=== PATIENT | female | born 1980 | race Caucasian/White ===

== ENCOUNTER 2022-05-03 13:30 | Outpatient (CLI) | payer MEDICAID, SELFPAY ==
--- NOTE | 2022-05-03 06:00 | DI.RAD_ITS ---
Exam(s) XR PAIN CLINIC LUMBAR SP 2V EXAM: XR PAIN CLINIC LUMBAR SP 2V CLINICAL HISTORY: Dx: Lumbar Spondylosis TECHNIQUE: 2D and realtime digital imaging was performed. CONTRAST MATERIAL: Refer to procedure report. COMPARISON: No exams were available for comparison FINDINGS: Fluoroscopy was provided for Dr. Cruz during the performance of a lumbar medial branch block. Christie gonzalez refer to the procedure report for complete details. Ka,r=55.9 mGy IMPRESSION:
[2022-05-03 13:41] VITALS: BP 128/82; PULSE 67; RESP 22; TEMP 36.9; O2SAT 97
--- NOTE | 2022-05-03 14:13 | PDOC.PAIN_ITS ---
Pain Clinic Procedure Note Procedure Note Procedure Note: Lumbar/Sacral Medial Branch Blocks Erinn Irizarry has been referred to the [facility] for lumbar/sacral medial branch blocks. COMMENTS: She was evaluated in our clinic on 02/02/22. Pre-procedure pain VAS = 8/10. Dx: Lumbosacral spondylosis without myelopathy Patient was interviewed and the medical record reviewed. There were no medical, pharmacologic, radiographic or other structural contraindications to attempting fluoroscopically guided local anesthetic lumbar/sacral medial branch blocks. Risks and expected side effects as well as potential benefit of the procedure were reviewed and voiced concerns addressed. The printed consent form was signed and witnessed. Standard time-out procedure was performed. Patient was placed in the prone position on the fluoroscopy table and automated blood pressure cuff and pulse oximeter applied. The skin entry points for approaching the anatomic target points of the segmental medial branches of bilateral L3, L4, and L5DR were identified with anfluoroscopy and marked. Following thorough Chlorhexadine preparation of the skin and draping, I marked out the positions of the medial branches. I then inserted 6 spinal needles (5 X 22G) to the target areas. Position was confirmed in A/P, oblique and lateral views with 0.25ml of omnipaque 240. At this point I injected 0.5ml 0.5% Bupivacaine at each segmental sensory nerve. Vital signs were stable throughout the procedure and were as recorded in the docflowsheet by the nursing staff. Follow up plans and appointments were discussed and was instructed to keep careful note of how the usual pain was modified by these injections. Specifically was asked to keep a pain diary for the next 24 hours using a numeric pain scale of 0-10 and report these results at the follow-up visit. Post procedure instruction was given as documented in the nursing documentation and having met discharge criteria. Patient was discharged from the Pain Management Center. Based on the medial branches blocked today, if the patient has adequate relief and we are able to proceed to radiofrequency ablation, the treatment should result in the denervation of the bilateral L4-L5 and L5-S1 FACET JOINTS. We would expect to denervate a total of 4 facets during the radiofrequency ablation. COMMENTS: Post-procedure pain VAS = 0/10. Vidal Cruz DO, MPH [facility]-Pain Management [facility] for Pain Management CC: Nabor Lynne
[2022-05-03] MEDS: Omnipaque 240 MG/ML 50 ML BTL IJ (14:23)
[2022-05-03] MEDS: Bupivacaine 0.5% Pres-Free 30 ML VIAL IJ (14:24)
[2022-05-03 14:25] VITALS: BP 142/89; PULSE 76; RESP 19; O2SAT 100
== END 2022-05-03 13:31 | disposition home or self-care (01) ==
PROVIDERS: PCP Family Medicine; Visit Provider Preventive Medicine Occupational Medicine
DX: M47.817 Spondylosis without myelopathy or radiculopathy, lumbosacral region (principal)
CPT/HCPCS: 64493; 64494; 72100; Q9967

== ENCOUNTER 2022-10-31 12:33 | Outpatient (CLI) | payer MEDICAID, SELFPAY ==
--- NOTE | 2022-10-31 06:00 | DI.RAD_ITS ---
Exam(s) XR PAIN CLINIC LUMBAR SP 2V EXAM: XR PAIN CLINIC LUMBAR SP 2V CLINICAL HISTORY: Dx: Lumbar Spondylosis TECHNIQUE: 2D and realtime digital imaging was performed. Radiologist not present. CONTRAST MATERIAL: None. COMPARISON: No exams were available for comparison FINDINGS: Fluoroscopy was provided for pain management therapy. Please refer to procedure report or details. Cumulative dose: Mlr=28.37 mGy Total fluoro time 30.1 seconds IMPRESSION: RADIATION DOSE DELIVERED:
[2022-10-31 12:41] VITALS: BP 154/88; PULSE 77; RESP 20; TEMP 36; O2SAT 96
[2022-10-31] MEDS: Lidocaine 2% Pres-Free 5 ML VIAL IJ (13:22)
[2022-10-31] MEDS: Omnipaque 240 MG/ML 50 ML BTL IJ (13:22)
[2022-10-31 13:23] VITALS: BP 145/86; PULSE 77; RESP 18; O2SAT 98
--- NOTE | 2022-10-31 13:52 | PDOC.PAIN_ITS ---
Date of service: 10/31/22 Time of Service: 13:53 Pain Clinic Procedure Note Procedure Note Procedure Note: Lumbar/Sacral Medial Branch Blocks Erinn Irizarry has been referred to the [facility] Management Center for lumbar/sacral medial branch blocks. COMMENTS: She was evaluated in our clinic on 02/02/22. Had significant pain relief after first diagnostic LMBB. She presents for confirmatory LMBB. Dx: Lumbosacral spondylosis without myelopathy Patient was interviewed and the medical record reviewed. There were no medical, pharmacologic, radiographic or other structural contraindications to attempting fluoroscopically guided local anesthetic lumbar/sacral medial branch blocks. Risks and expected side effects as well as potential benefit of the procedure were reviewed and voiced concerns addressed. The printed consent form was signed and witnessed. Standard time-out procedure was performed. Patient was placed in the prone position on the fluoroscopy table and automated blood pressure cuff and pulse oximeter applied. The skin entry points for approaching the anatomic target points of the segmental medial branches of bilateral L3, L4, and L5DR were identified with anfluoroscopy and marked. Following thorough Chlorhexadine preparation of the skin and draping, I marked out the positions of the medial branches. I then inserted 6 spinal needles (5 X 22G) to the target areas. Position was confirmed in A/P, oblique and lateral views with 0.25ml of omnipaque 240. At this point I injected 0.5ml of 2% Lidocaine at each segmental sensory nerve. Vital signs were stable throughout the procedure and were as recorded in the docflowsheet by the nursing staff. Follow up plans and appointments were discussed and was instructed to keep careful note of how the usual pain was modified by these injections. Oscar chavez was asked to keep a pain diary for the next 24 hours using a numeric pain scale of 0-10 and report these results at the follow-up visit. Post procedure instruction was given as documented in the nursing documentation and having met discharge criteria. Patient was discharged from the Pain Management Center. Based on the medial branches blocked today, if the patient has adequate relief and we are able to proceed to radiofrequency ablation, the treatment should result in the denervation of the bilateral L4-L5 and L5-S1 FACET JOINTS. We would expect to denervate a total of 4 facets during the radiofrequency ablation. COMMENTS: Pre-procedure pain VAS score 6/10, post-procedure pain VAS = 1/10. Any Trent MD Pain Management CC: Lippmann,Nabor
== END 2022-10-31 12:34 | disposition home or self-care (01) ==
LOC: PC 12:33
PROVIDERS: PCP Family Medicine; Visit Provider Internal Medicine
DX: M47.817 Spondylosis without myelopathy or radiculopathy, lumbosacral region (principal)
CPT/HCPCS: 64493; 64494; 72100; Q9967

== ENCOUNTER 2022-12-28 11:29 | Outpatient (CLI) | payer MEDICAID, SELFPAY ==
--- NOTE | 2022-12-28 06:00 | DI.RAD_ITS ---
Exam(s) XR PAIN CLINIC LUMBAR SP 2V EXAM: XR PAIN CLINIC LUMBAR SP 2V CLINICAL HISTORY: Dx: Lumbar Spondylosis TECHNIQUE: 2D and realtime digital imaging was performed. Radiologist not present. CONTRAST MATERIAL: None. COMPARISON: No exams were available for comparison FINDINGS: Fluoroscopy was provided for pain management therapy. Please refer to procedure report or details. Radiation Exposure Index: Ka,r=121.85 mGy IMPRESSION: As above. RADIATION DOSE DELIVERED:
[2022-12-28 11:49] VITALS: BP 131/93; PULSE 60; RESP 20; TEMP 36.5; O2SAT 96
[2022-12-28] MEDS: fentaNYL 100 MCG/2 ML VIAL IVP ×2 (12:44→12:47)
[2022-12-28] MEDS: Lactated Ringers 500 ML 80 ML IV (12:44)
[2022-12-28] MEDS: Midazolam 2 MG/2 ML VIAL IVP (12:44)
[2022-12-28 13:27] VITALS: BP 135/78; PULSE 68; RESP 18; O2SAT 98
--- NOTE | 2022-12-28 13:31 | PDOC.PAIN_ITS ---
Date of service: 12/28/22 Time of Service: 13:36 Pain Clinic Procedure Note Procedure Note Procedure Note: Bilateral Lumbar Radiofrequency with the [employer] Machine PROCEDURE NOTE Date of Service: December 28, 2022 Patient: Erinn Irizarry Provider: Vidal Cruz DO, MPH Pre Operative Diagnosis: Lumbosacral Spondylosis without Myelopathy Post Operative Diagnosis: Same Pre procedure pain; VAS= 7/10 PROCEDURE: Radiofrequency Ablation of medial branches - Bilateral L3 L4 L5 Erinn Edie was brought into the fluoroscopy suite and positioned into the prone position on the fluoroscopy table and allowed to adjust to a position of comfort. A grounding pad was placed on the left stomach. The lumbar region was widely prepped with a chloraprep solution, allowed to air dry and draped in standard sterile surgical fashion. Local anesthesia was provided by 6 mL of 2% Lidocaine delivered with a 25g needle. A 17g 150mm radiofrequency introducer needle was placed to the planned anatomic targets guided with intermittent fluoroscopy with a perpendicular approach to terminally place at the junction of the superior articular process and the transverse process of the bilateral L4, L5 and the base of the sacral ala on the bilateral for the L5 medial branch nerve. The stylets were removed and radiofrequency probes with a 4mm active tip were then inserted. Needle tip position of the probes was verified in the AP, oblique, and lateral views. At each site, the medial branch nerve was stimulated at 2 Hz to a maximum 1-2 volts determined to finalize safe needle and electrode placement. The patient was awake and responsive during this portion of the procedure. Each target was anesthetized with 1-2 mL of 2% Lidocaine for anesthesia for lesioning and then each target was lesioned at 80 degrees Celsius for 2 minutes and 30 seconds. Tissue impedences were noted to be between 250 and 500 Ohms. I then injected 1/3 cc of Depomedrol (40 mg/cc) and then 1 cc of 0.5% Bupivacaine. Electrodes and needles were then removed and bandages placed over the needle placement sites, the patient then returned to the supine position on a stretcher and transported to the recovery room without hemodynamic, neurologic, or allergic reactions. Fluoroscopic images were printed for hard copy recording and digitally archived. POST PROCEDURE EVALUATION: IMPRESSION: 1. Summary of procedure. Medication given is documented in the MAR. 2. The patient will be contacted in 1-3 weeks 3. Estimated Blood Loss: <5 mls 4. Fluoroscopy time: Documented in the EMR. Follow up plans and appointments were discussed with the Erinn . Post procedure instruction was given as documented in nursing documentation and having met discharge criteria, Erinn was discharged from the Pain Management Center. COMMENTS: No apparent complications. Post-procedure pain: VAS= 2/10. F/U with our office as needed. Vidal Cruz DO, MPH [facility]-Pain Management [facility]-Center for Pain Management
[2022-12-28] MEDS: Bupivacaine 0.5% Pres-Free 10 ML VIAL IJ (13:36)
[2022-12-28] MEDS: Lidocaine 2% Pres-Free 5 ML VIAL IJ (13:36)
[2022-12-28] MEDS: methylPREDNISolone ACETATE 40 MG/ML VIAL IJ (13:37)
== END 2022-12-28 11:30 | disposition home or self-care (01) ==
LOC: PC 11:30
PROVIDERS: PCP Family Medicine; Visit Provider Preventive Medicine Occupational Medicine
DX: M47.817 Spondylosis without myelopathy or radiculopathy, lumbosacral region (principal)
CPT/HCPCS: 64635; 64636; 72100; J1030; J2250; J3010

== ENCOUNTER 2023-04-12 09:46 | Outpatient (CLI) | payer MEDICAID, SELFPAY ==
[2023-04-12 09:54] VITALS: BP 169/109; PULSE 63; RESP 20; TEMP 36.8; O2SAT 99
--- NOTE | 2023-04-12 10:46 | DI.RAD_ITS ---
Exam(s) XR PAIN CLINIC LUMBAR SP 2V EXAM: XR PAIN CLINIC LUMBAR SP 2V CLINICAL HISTORY: Dx: Lumbar Radiculopathy TECHNIQUE: 2D and realtime digital imaging was performed. Radiologist not present. CONTRAST MATERIAL: None. COMPARISON: No exams were available for comparison FINDINGS: Fluoroscopy was provided for pain management therapy. Please refer to procedure report or details. Radiation Exposure Index: Ka,r=30.85 mGy IMPRESSION: As above. RADIATION DOSE DELIVERED:
--- NOTE | 2023-04-12 10:47 | PDOC.PAIN ---
Date of service: 04/12/23 Time of Service: 10:47 Pain Managment Procedure Note Procedure Note Procedure Note: Lumbar Epidural Steroid Injection Procedure Note COMMENTS:I previously evaluated her in the office and recommended this procedure. Dx: Lumbosacral radiculopathy Pre-procedure pain VAS was 6/10 Erinn Irizarry has been referred to the Pain Management Center for lumbar epidural steroid injection. The patient was greeted by the nurse who verified patients name and . Patient was then taken to the fluoroscopy suite. The patient was interviewed and the medial record reviewed. There were no medical, pharmacologic, radiographic, or other structural contraindications to attempting fluoroscopically guided lumbar epidural steroid injection. Risks and expected side effects as well as potential benefits of the procedure were reviewed and voiced concerns expressed. The patient consent form was signed and witnessed. Standard patient time-out procedure was performed. The patient was placed in the prone position on the fluoroscopy table and automated blood pressure cuff and pulse oximeter applied. The skin entry point for entering/approaching the epidural space at L5-S1 and marked. Following thorough chlorhexadine preparation of the skin and draping and 1% lidocaine infiltration of the skin entry point and subcutaneous tissues, a 18 gauge Touhy needle was placed under fluoroscopic guidance and with loss of resistance technique into the epidural space. Needle tip placement and depth were aided and confirmed by fluoroscopy. There was no paresthesia or return of blood or CSF through the needle. 1 cc's of Omnipaque 240 was injected with clear epidural spread confirmed with fluoroscopy. 80mg depomedrol was injected. This was followed by 2 cc of preservative-free 1% Lidocaine. There was not any unusual discomfort expressed by Erinn Irizarry. Patient's vital signs were stable throughout the procedure and were as recorded in nursing records. Follow up plans and appointments were discussed with patient. Post procedure instruction was given as documented in nursing records and having met discharge criteria and was discharged from the Pain Management Center. COMMENTS: If this procedure is helpful, it can be completed up to 4 times per 12 months. Post-procedure pain VAS was 1/10 Here blood pressure was elevated today, but she was asymptomatic. She has been under severe stress over the past couple days. Vidal Cruz DO, MPH [facility]-Pain Management [facility]-Center for Pain Management
[2023-04-12] MEDS: Omnipaque 240 MG/ML 50 ML BTL IJ (10:57)
[2023-04-12 10:58] VITALS: BP 158/104; PULSE 71; RESP 18; O2SAT 98
[2023-04-12] MEDS: methylPREDNISolone ACETATE 80 MG/ML VIAL IJ (10:58)
== END 2023-04-12 09:47 | disposition home or self-care (01) ==
LOC: PC 09:46
PROVIDERS: PCP Family Medicine; Visit Provider Preventive Medicine Occupational Medicine
DX: M54.17 Radiculopathy, lumbosacral region (principal)
CPT/HCPCS: 62323; 72100; J1040; Q9967

== ENCOUNTER 2023-08-15 14:42 | Outpatient (CLI) | payer MEDICAID, SELFPAY ==
--- NOTE | 2023-08-15 06:00 | DI.RAD_ITS ---
Exam(s) XR PAIN CLINIC LUMBAR SP 2V EXAM: XR PAIN CLINIC LUMBAR SP 2V CLINICAL HISTORY: DX: Lumbar Radiculopathy. TECHNIQUE: Fluoroscopy was provided for the referring physician for guidance with performing pain cl inic injection procedure. COMPARISON: No exams were available for comparison FINDINGS: Please see procedure note for details. Fluoro time: 22.3 seconds RADIATION DOSE DELIVERED: Ka,r=25.98 mGy
[2023-08-15 15:06] VITALS: BP 144/96; PULSE 88; RESP 20; TEMP 36.6; O2SAT 97
[2023-08-15 15:35] VITALS: BP 162/88; PULSE 90; RESP 20; O2SAT 98
--- NOTE | 2023-08-15 15:39 | PDOC.PAIN_ITS ---
Date of service: 08/15/23 Time of Service: 15:39 Pain Managment Procedure Note Procedure Note Procedure Note: PROCEDURE NOTE LUMBAR EPIDURAL STEROID INJECTION Date of Service: August 15, 2023 Patient:Erinn Tracy? Provider: Vidal Cruz DO, MPH Erinn Irizarry has been referred to the Pain Management Center for a lumbar epidural steroid injection. Pre-operative diagnosis: Lumbosacral Radiculopathy Post-operative diagnosis: Same Pre-Procedure Pain: VAS= 6 /10 Comments: She last had this procedure on 04/12/23 and had >3 months of >50% pain relief. Erinn was interviewed and the medical record was reviewed.? There were no medical, pharmacologic, radiographic or other structural contraindications to attempting fluoroscopically guided Lumbar epidural steroid injection.? Risks, potential side effects, indications, and potential benefits of the procedure were reviewed with Erinn.? Questions and concerns were addressed.? After it was clear that Erinn was fully informed about the procedure, the printed consent form was signed by the patient and myself.? Erinn was placed in the prone position on the fluoroscopy table and automated blood pressure cuff and pulse oximeter applied. The skin entry point for entering/approaching the epidural space for the lumbar epidural steroid injection was marked. Following thorough chlorhexadine preparation of the skin and draping and 1% lidocaine infiltration of the skin entry point and subcutaneous tissues, an 18 gauge Touhy needle was placed and advanced under fluoroscopic guidance and with loss of resistance technique into the L5-S1 epidural space. Needle tip placement and depth were aided and confirmed by fluoroscopy. There was no paresthesia or return of blood or CSF through the needle. 1 mls of Omnipaque 240 was injected with clear epidural spread confirmed with fluoroscopy. 80 mg of Depo-Medrol was? injected. This was followed by 1 ml of preservative-free normal saline to flush the steroid out of the needle. There was no unusual discomfort expressed by Erinn. The needle was withdrawn without difficulty. (49 mls of Omnipaque was wasted) Erinn was observed and was without hemodynamic, neurologic, or allergic reactions.? Fluoroscopic images were digitally archived. Erinn's vital signs were stable throughout the procedure and were as recorded in nursing records. Follow up plans and appointments were discussed with Erinn. Post procedure instruction was given as documented in nursing records and having met discharge criteria Erinn was discharged from the Pain Management Center. COMMENTS: No apparent complications. Post-procedure pain: VAS= 1/10. Erinn to contact Center for [facility] Management as needed. If at least 50% improvement in pain and/or function for at least 3 months is achieved, this procedure can be repeated. Her blood pressure was a little elevated 160s/90s after the procedure. She was asymptomatic and has an appointment with her PCP next week. She watches her blood pressure at home with her own machine. Her blood pressure at home has been stable. I personally performed this entire procedure. VIDAL CRUZ DO, MPH [facility]-subspecialty board certification in Pain Medicine [facility]-Center for Pain Management
[2023-08-15] MEDS: Omnipaque 240 MG/ML 50 ML BTL IJ (15:56)
[2023-08-15] MEDS: methylPREDNISolone ACETATE 80 MG/ML VIAL IJ (15:56)
== END 2023-08-15 14:43 | disposition home or self-care (01) ==
LOC: PC 14:43
PROVIDERS: PCP Family Medicine; Visit Provider Preventive Medicine Occupational Medicine
DX: M54.17 Radiculopathy, lumbosacral region (principal)
CPT/HCPCS: 62323; 72100; J1040; Q9967

== ENCOUNTER 2024-01-10 09:43 | Outpatient (CLI) | payer MEDICAID, SELFPAY ==
--- NOTE | 2024-01-10 06:00 | DI.RAD_ITS ---
Exam(s) XR PAIN CLINIC LUMBAR SP 2V EXAM: XR PAIN CLINIC LUMBAR SP 2V CLINICAL HISTORY: Dx: Lumbar Radiculopathy TECHNIQUE: 2D and realtime digital imaging was performed. CONTRAST MATERIAL: Refer to procedure report. COMPARISON: No exams were available for comparison FINDINGS: Fluoroscopy was provided for Dr. Cruz during the performance of a lumbar epidural steroid injection. Please refer to the procedure report for complete details. Ka,r=35.8 mGy IMPRESSION: RADIATION DOSE DELIVERED: 0.0 0.0 0
[2024-01-10 10:15] VITALS: BP 128/93; PULSE 71; RESP 16; TEMP 35.6; O2SAT 97
--- NOTE | 2024-01-10 10:48 | PDOC.PAIN_ITS ---
Date of service: 01/10/24 Time of Service: 10:49 Pain Managment Procedure Note Procedure Note Procedure Note: PROCEDURE NOTE LUMBAR EPIDURAL STEROID INJECTION Date of Service: January 10, 2024 Patient:Erinn Tracy? Provider: Vidal Cruz DO, MPH Erinn Irizarry has been referred to the Pain Management Center for a lumbar epidural steroid injection. Pre-operative diagnosis: Lumbosacral Radiculopathy Post-operative diagnosis: Same Pre-Procedure Pain: VAS= 7 /10 Comments: She last had this procedure on 08/15/23 and had >4 months of >50% pain improvement. This pain has returned for the most part. She is current 420 pounds. Erinn was interviewed and the medical record was reviewed.? There were no medical, pharmacologic, radiographic or other structural contraindications to attempting fluoroscopically guided Lumbar epidural steroid injection.? Risks, potential side effects, indications, and potential benefits of the procedure were reviewed with Erinn.? Questions and concerns were addressed.? After it was clear that Erinn was fully informed about the procedure, the printed consent form was signed by the patient and myself.? Erinn was placed in the prone position on the fluoroscopy table and automated blood pressure cuff and pulse oximeter applied. The skin entry point for entering/approaching the epidural space for the lumbar epidural steroid injection was marked. Following thorough chlorhexadine preparation of the skin and draping and 1% lidocaine infiltration of the skin entry point and subcutaneous tissues, an 18 gauge Touhy needle was placed and advanced under fluoroscopic guidance and with loss of resistance technique into the L5-S1 epidural space. Needle tip placement and depth were aided and confirmed by fluoroscopy. There was no paresthesia or return of blood or CSF through the needle. 1 mls of Omnipaque 240 was injected with clear epidural spread confirmed with fluoroscopy. 80 mg of Depo-Medrol was? injected. This was followed by 1 ml of preservative-free normal saline to flush the steroid out of the needle. There was no unusual discomfort expressed by Erinn. The needle was withdrawn without difficulty. (49 mls of Omnipaque was wasted) Erinn was observed and was without hemodynamic, neurologic, or allergic reactions.? Fluoroscopic images were digitally archived. Erinn's vital signs were stable throughout the procedure and were as recorded in nursing records. Follow up plans and appointments were discussed with Erinn. Post procedure instruction was given as documented in nursing records and having met discharge criteria Erinn was discharged from the Pain Management Center. COMMENTS: No apparent complications. Post-procedure pain: VAS= 2/10. [facility]inn [facility] as needed. If at least 50% improvement in pain and/or function for at least 3 months is achieved, this procedure can be repeated. I personally performed this entire procedure. VIDAL CRUZ DO, MPH [facility]-subspecialty board certification in Pain Medicine [facility]-Center for Pain Management
[2024-01-10 10:49] VITALS: BP 150/94; PULSE 86; RESP 19; O2SAT 98
[2024-01-10] MEDS: Epidural Tray 1 EACH MC (10:51)
[2024-01-10] MEDS: methylPREDNISolone ACETATE 80 MG/ML VIAL IJ (10:52)
[2024-01-10] MEDS: Omnipaque 240 MG/ML 50 ML BTL IJ (10:52)
== END 2024-01-10 09:44 | disposition home or self-care (01) ==
PROVIDERS: PCP Family Medicine; Visit Provider Preventive Medicine Occupational Medicine
DX: M54.17 Radiculopathy, lumbosacral region (principal)
CPT/HCPCS: 00123; 62323; 72100; J1040; Q9967

== ENCOUNTER 2024-05-28 11:58 | Outpatient (CLI) | payer MEDICAID, SELFPAY ==
[2024-05-28 12:09] VITALS: BP 148/98; PULSE 78; RESP 20; TEMP 36.2; O2SAT 97
[2024-05-28 12:28] VITALS: PULSE 82; O2SAT 95
[2024-05-28 12:30] VITALS: PULSE 87; RESP 24; O2SAT 97
[2024-05-28 12:40] VITALS: BP 181/104; PULSE 77
--- NOTE | 2024-05-28 12:40 | DI.RAD_ITS ---
Exam(s) XR PAIN CLINIC LUMBAR SP 2V EXAM: XR PAIN CLINIC LUMBAR SP 2V CLINICAL HISTORY: Lumbar Radiculopathy. TECHNIQUE: Fluoroscopy was provided for the referring physician for guidance with performing pain cl inic injection procedure. COMPARISON: No exams were available for comparison FINDINGS: Please see procedure note for details. Fluoro time: 33.3 seconds RADIATION DOSE DELIVERED: Kar=49.19 mGy
--- NOTE | 2024-05-28 12:43 | PDOC.PAIN ---
Date of service: 05/28/24 Time of Service: 12:43 Pain Managment Procedure Note Procedure Note Procedure Note: PROCEDURE NOTE LUMBAR EPIDURAL STEROID INJECTION Date of Service: May 28, 2024 Patient:Erinn Tracy? Provider: Vidal Cruz DO, MPH Erinn Irizarry has been referred to the [facility] for a lumbar epidural steroid injection. Pre-operative diagnosis: Lumbosacral Radiculopathy Post-operative diagnosis: Same Pre-Procedure Pain: VAS= 7 /10 Comments: She had >50% pain improvement for >3 months with her last LESI. She is morbidly obese with a BMI in the mid 60's. Erinn was interviewed and the medical record was reviewed.? There were no medical, pharmacologic, radiographic or other structural contraindications to attempting fluoroscopically guided Lumbar epidural steroid injection.? Risks, potential side effects, indications, and potential benefits of the procedure were reviewed with Erinn.? Questions and concerns were addressed.? After it was clear that Erinn was fully informed about the procedure, the printed consent form was signed by the patient and myself.? Erinn was placed in the prone position on the fluoroscopy table and automated blood pressure cuff and pulse oximeter applied. The skin entry point for entering/approaching the epidural space for the lumbar epidural steroid injection was marked. Following thorough chlorhexadine preparation of the skin and draping and 1% lidocaine infiltration of the skin entry point and subcutaneous tissues, an 18 gauge 7 Touhy needle was placed and advanced under fluoroscopic guidance and with loss of resistance technique into the L5-S1 epidural space. Needle tip placement and depth were aided and confirmed by fluoroscopy. There was no paresthesia or return of blood or CSF through the needle. 1 mls of Omnipaque 240 was injected with clear epidural spread confirmed with fluoroscopy. 80 mg of Depo-Medrol was? injected. This was followed by 1 ml of preservative-free normal saline to flush the steroid out of the needle. There was no unusual discomfort expressed by Erinn. The needle was withdrawn without difficulty. (49 mls of Omnipaque was wasted) Erinn was observed and was without hemodynamic, neurologic, or allergic reactions.? Fluoroscopic images were digitally archived. Erinn's vital signs were stable throughout the procedure and were as recorded in nursing records. Follow up plans and appointments were discussed with Erinn. Post procedure instruction was given as documented in nursing records and having met discharge criteria Erinn was discharged from the [facility]. COMMENTS: No apparent complications. She is getting to the edge of our ability to complete this procedure. I went to the hub of a 7 needle to get to the epidural space and her lateral images are getting very grainy. Post-procedure pain: VAS= 1/10. Erinn to contact [facility] as needed. If at least 50% improvement in pain and/or function for at least 3 months is achieved, this procedure can be repeated. I personally performed this entire procedure. VIDAL CRUZ DO, MPH ABPMR-subspecialty board certification in Pain Medicine [facility]
[2024-05-28 12:44] VITALS: BP 175/114; PULSE 74
[2024-05-28 12:47] VITALS: BP 149/98; PULSE 73
[2024-05-28] MEDS: Omnipaque 240 MG/ML 50 ML BTL IJ (12:49)
[2024-05-28] MEDS: Epidural Tray 1 EACH MC (12:49)
[2024-05-28] MEDS: methylPREDNISolone ACETATE 80 MG/ML VIAL IJ (12:50)
== END 2024-05-28 11:59 | disposition home or self-care (01) ==
LOC: PC 11:58
PROVIDERS: PCP Family Medicine; Visit Provider Preventive Medicine Occupational Medicine
DX: M54.17 Radiculopathy, lumbosacral region (principal)
CPT/HCPCS: 62323; 72100; J1010; Q9967

== ENCOUNTER 2024-09-10 15:26 | Outpatient (CLI) | payer MEDICAID, SELFPAY ==
--- NOTE | 2024-09-10 06:00 | DI.RAD_ITS ---
Exam(s) XR PAIN CLINIC LUMBAR SP 2V EXAM: XR PAIN CLINIC LUMBAR SP 2V CLINICAL HISTORY: DX:Lumbar Radiculopathy TECHNIQUE: 2D and realtime digital imaging was performed. Radiologist not present. CONTRAST MATERIAL: None. COMPARISON: No exams were available for comparison FINDINGS: Fluoroscopy was provided for pain management therapy. L5-S1 epidural injection Please refer to procedure report or details. Radiation Exposure Index: Ka,r=36.47 mGy IMPRESSION: As above. RADIATION DOSE DELIVERED:
[2024-09-10 15:35] VITALS: BP 150/60; PULSE 89; RESP 20; TEMP 36.7; O2SAT 98
[2024-09-10] MEDS: Epidural Tray 1 EACH MC (16:08)
[2024-09-10] MEDS: methylPREDNISolone ACETATE 80 MG/ML VIAL IJ (16:08)
[2024-09-10] MEDS: Omnipaque 240 MG/ML 50 ML BTL IJ (16:09)
--- NOTE | 2024-09-11 07:44 | PDOC.PAIN ---
Date of service: 09/10/24 Time of Service: 17:00 Pain Managment Procedure Note Procedure Note Procedure Note: PROCEDURE NOTE LUMBAR EPIDURAL STEROID INJECTION Date of Service: September 10, 2024 Patient:Erinn Tracy? Provider: Vidal Cruz DO, MPH Erinn Irizarry has been referred to the [facility] for a lumbar epidural steroid injection. Pre-operative diagnosis: Lumbosacral Radiculopathy ICD-10 M54.16 Post-operative diagnosis: Same Pre-Procedure Pain: VAS= 8 /10 Comments: Last LESI was on 05/28/24 and she had >50% pain improvement for >3 months. This pain has returned. Of note, she weighs >400 pounds. Erinn was interviewed and the medical record was reviewed.? There were no medical, pharmacologic, radiographic or other structural contraindications to attempting fluoroscopically guided Lumbar epidural steroid injection.? Risks, potential side effects, indications, and potential benefits of the procedure were reviewed with Erinn.? Questions and concerns were addressed.? After it was clear that Erinn was fully informed about the procedure, the printed consent form was signed by the patient and myself.? Erinn was placed in the prone position on the fluoroscopy table and automated blood pressure cuff and pulse oximeter applied. The skin entry point for entering/approaching the epidural space for the lumbar epidural steroid injection was marked. Following thorough chlorhexadine preparation of the skin and draping and 1% lidocaine infiltration of the skin entry point and subcutaneous tissues, an 18 gauge Touhy needle was placed and advanced under fluoroscopic guidance and with loss of resistance technique into the L5-S1 epidural space. Needle tip placement and depth were aided and confirmed by fluoroscopy. There was no paresthesia or return of blood or CSF through the needle. 1 mls of Omnipaque 240 was injected with clear epidural spread confirmed with fluoroscopy. 80 mg of Depo-Medrol was? injected. This was followed by 1 ml of preservative-free normal saline to flush the steroid out of the needle. There was no unusual discomfort expressed by Erinn. The needle was withdrawn without difficulty. (49 mls of Omnipaque was wasted) Erinn was observed and was without hemodynamic, neurologic, or allergic reactions.? Fluoroscopic images were digitally archived. Erinn's vital signs were stable throughout the procedure and were as recorded in nursing records. Follow up plans and appointments were discussed with Erinn. Post procedure instruction was given as documented in nursing records and having met discharge criteria Erinn was discharged from the [facility]. COMMENTS: No apparent complications. Post-procedure pain: VAS= 1/10. Erinn to contact [facility] as needed. If at least 50% improvement in pain and/or function for at least 3 months is achieved, this procedure can be repeated. I personally performed this entire procedure. VIDAL CRUZ DO, MPH ABPMR-subspecialty board certification in Pain Medicine [facility]
== END 2024-09-10 15:27 | disposition home or self-care (01) ==
LOC: PC 15:26
PROVIDERS: PCP Family Medicine; Visit Provider Preventive Medicine Occupational Medicine
DX: M54.16 Radiculopathy, lumbar region (principal)
CPT/HCPCS: 62323; 72100; J1010; Q9967

== ENCOUNTER 2025-04-15 12:22 | Outpatient (CLI) | payer MEDICAID, SELFPAY ==
--- NOTE | 2025-04-15 06:00 | DI.RAD_ITS ---
Exam(s) XR PAIN CLINIC LUMBAR SP 2V EXAM: XR PAIN CLINIC LUMBAR SP 2V CLINICAL HISTORY: Dx: Lumbar Radiculopathy TECHNIQUE: 2D and realtime digital imaging was performed. CONTRAST MATERIAL: Refer to procedure report. COMPARISON: No exams were available for comparison FINDINGS: Fluoroscopy was provided for Dr. Cruz during the performance of a epidural steroid injection. Pleemery e refer to the procedure report for complete details. Ka,r=29.1 mGy IMPRESSION: RADIATION DOSE DELIVERED: 0.0 0.0 0
[2025-04-15 12:36] VITALS: BP 139/89; PULSE 73; RESP 18; TEMP 36.2; O2SAT 97
[2025-04-15 12:59] VITALS: PULSE 79; RESP 21; O2SAT 98
[2025-04-15 13:00] VITALS: PULSE 81; RESP 20; O2SAT 98
[2025-04-15 13:01] VITALS: BP 194/111; PULSE 78; PULSE 81; RESP 20; O2SAT 98
--- NOTE | 2025-04-15 13:10 | PDOC.PAIN_ITS ---
Date of service: 04/15/25 Time of Service: 13:10 Pain Managment Procedure Note Procedure Note Procedure Note: PROCEDURE NOTE LUMBAR EPIDURAL STEROID INJECTION Date of Service: April 15, 2025 Patient:Erinn Tracy? Provider: Vidal Cruz DO, MPH Erinn Irizarry has been referred to the [facility] for a lumbar epidural steroid injection. Pre-operative diagnosis: Lumbosacral Radiculopathy ICD-10 M54.16 Post-operative diagnosis: Same Pre-Procedure Pain: VAS= 8/10 Comments: She last had this procedure on 09/11/24 and had >5 months of >50% pain relief. This pain has returned. Erinn was interviewed and the medical record was reviewed.? There were no medical, pharmacologic, radiographic or other structural contraindications to attempting fluoroscopically guided Lumbar epidural steroid injection.? Risks, potential side effects, indications, and potential benefits of the procedure were reviewed with Erinn.? Questions and concerns were addressed.? After it was clear that Erinn was fully informed about the procedure, the printed consent form was signed by the patient and myself.? Erinn was placed in the prone position on the fluoroscopy table and automated blood pressure cuff and pulse oximeter applied. The skin entry point for entering/approaching the epidural space for the lumbar epidural steroid injection was marked. Following thorough chlorhexadine preparation of the skin and draping and 1% lidocaine infiltration of the skin entry point and subc utaneous tissues, an 18 gauge 7 Touhy needle was placed and advanced under fluoroscopic guidance and with loss of resistance technique into the L5-S1 epidural space. Needle tip placement and depth were aided and confirmed by fluoroscopy. There was no paresthesia or return of blood or CSF through the needle. 1 mls of Omnipaque 240 was injected with clear epidural spread confirmed with fluoroscopy. 80 mg of Depo-Medrol was? injected. This was followed by 1 ml of preservative-free normal saline to flush the steroid out of the needle. There was no unusual discomfort expressed by Erinn. The needle was withdrawn without difficulty. (49 mls of Omnipaque was wasted) Erinn was observed and was without hemodynamic, neurologic, or allergic reactions.? Fluoroscopic images were digitally archived. Erinn's vital signs were stable throughout the procedure and were as recorded in nursing records. Follow up plans and appointments were discussed with Erinn. Post procedure instruction was given as documented in nursing records and having met discharge criteria Erinn was discharged from the [facility]. COMMENTS: No apparent complications. Post-procedure pain: VAS= 1/10. Erinn to contact [facility] as needed. If at least 50% improvement in pain and/or function for at least 3 months is achieved, this procedure can be repeated. I personally performed this entire procedure. VIDAL CRUZ DO, MPH ABPMR-subspecialty board certification in Pain Medicine [facility] Coding Conscious Sedation used for procedure: No CPT Codes: Inj Spine L/S w/Imaging - [id number] ([id number] ~G) Additional Codes: Date of Service (31226) Date of service: 04/15/25
[2025-04-15 13:13] VITALS: BP 155/110; PULSE 82
[2025-04-15] MEDS: Omnipaque 240 MG/ML 50 ML BTL IJ (13:16)
[2025-04-15] MEDS: Epidural Tray 1 EACH MC (13:16)
[2025-04-15] MEDS: methylPREDNISolone ACETATE 80 MG/ML VIAL IJ (13:17)
== END 2025-04-15 12:23 | disposition home or self-care (01) ==
LOC: PC 12:23
PROVIDERS: PCP Family Medicine; Visit Provider Preventive Medicine Occupational Medicine
DX: M54.16 Radiculopathy, lumbar region (principal)
CPT/HCPCS: 62323; 72100; J1010; Q9967

== ENCOUNTER 2025-09-01 09:52 | Outpatient (CLI) | payer MEDICAID, SELFPAY ==
--- NOTE | 2025-09-01 06:00 | DI.RAD_ITS ---
Exam(s) XR PAIN CLINIC LUMBAR SP 2V EXAM: XR PAIN CLINIC LUMBAR SP 2V CLINICAL HISTORY: DX: Lumbar Radiculopathy TECHNIQUE: 2D and realtime digital imaging was performed. CONTRAST MATERIAL: Refer to procedure report. COMPARISON: No exams were available for comparison FINDINGS: Fluoroscopy was provided for Dr. Jorge during the performance of a lumbar epidural steroid injection. Please refer to the procedure report for complete details. Ka,r=15.7 mGy IMPRESSION: RADIATION DOSE DELIVERED: 0.0 0.0 0
[2025-09-01 10:00] VITALS: BP 160/105; PULSE 74; RESP 20; TEMP 37; O2SAT 96
--- NOTE | 2025-09-01 10:19 | PDOC.PAIN ---
Date of service: 09/01/25 Time of Service: 10:47 Pain Managment Procedure Note Procedure Note Procedure Note: Lumbar Interlaminar Epidural Steroid Injection ? Location: L5-S1 ? Pre-procedure Diagnosis: M54.16- Radiculopathy, LUMBAR region ? Post-procedure Diagnosis:? The same as above ? Sedation:? None ? Medication: Depo-Medrol 80 mg, Omnipaque 1 mL ? Estimated blood loss:? less than 2 ml ? Surgeon:? Guanakito Jorge MD COMMENT: Patient has had multiple epidural steroid injections in the past with good relief for 3 to 6 months. ? Procedure Detail:? The procedure and potential risks were explained to the patient and informed written consent was obtained. The patient was escorted to the procedure room and placed in the prone position. Pillows were utilized for proper positioning and comfort. Time out was performed in the procedure room with nursing staff confirming the patient's identity, procedure to be performed, allergies, and any blood thinning or anti-platelet medications.? The patient's neck and upper back was prepped with ChloraPrep and draped in a sterile fashion. Sterile technique was maintained throughout the procedure.? Sterile gloves were used, a face mask was worn, and new single dose vials of all medications were used with the top being swabbed with alcohol and given time to dry prior to withdrawal of medication. Lidocane 1% was used to anesthetize the skin.Using a 25-gauge 1.5 inch needle, 1% lidocaine was instilled into the superficial soft tissue overlying the targeted area to provide local anesthesia. With fluoroscopic guidance, a 7 17 -gauge Tuohy needle was advanced toward the interlaminar space of L5-S1. The needle was then advance through the ligamentum flavum and into the posterior epidural space using the loss of resistance technique. Correct needle placement was confirmed through review of the AP. Could not get lateral view because of fluoroscopic technique and patient's girth Following negative aspiration,1 ml of Omnipaque 240 contrast was injected which confirmed good flow throughout the epidural space and no evidence of vascular flow or flow into adjacent compartments. Next, following negative aspiration, 1 ml of normal saline and 80mg of Depo-Medrol was injected. The needle was gently removed. The patient tolerated the procedure well and was transported to the recovery area for observation and discharge instructions. Permanent images saved and recorded. PAIN PRE-PROCEDURE 06/21 POST-PROCEDURE Plan:? Follow up prn. COMMENT: Reviewing her MRI she does have significant Modic II at L5 and S1 and to a lesser degree at L4 but given her body habitus she would not be able to have a basivertebral nerve ablation as she lost significant amount of weight for both technical and safety reasons being prone procedure with GA Coding Conscious Sedation used for procedure: No CPT Codes: Inj Spine L/S w/Imaging - [id number] ([id number] ~G) Additional Codes: Date of Service () Diagnoses: M54.16- Radiculopathy, LUMBAR region
[2025-09-01 10:33] VITALS: PULSE 88; O2SAT 94
[2025-09-01 10:40] VITALS: PULSE 79; O2SAT 97
[2025-09-01] MEDS: Epidural Tray 1 EACH MC (10:47)
[2025-09-01] MEDS: Omnipaque 240 MG/ML 50 ML BTL IJ (10:47)
[2025-09-01] MEDS: methylPREDNISolone ACETATE 40 MG/ML VIAL IJ (10:48)
== END 2025-09-01 09:53 | disposition home or self-care (01) ==
LOC: PC 09:52
PROVIDERS: PCP Family Medicine; Visit Provider Anesthesiology Pain Medicine
DX: M54.16 Radiculopathy, lumbar region (principal)
CPT/HCPCS: 62323; 72100; J1010; Q9967